=== PATIENT | male | born 1950 | race Caucasian/White ===

== ENCOUNTER → 2016-08-16 | Outpatient (CLI) | payer MEDICARE, OTHER ==
[~2016-08-16] MED LIST: CIPRO 500MG TA500 MG PO; PERCOCET 325 MG1 TA2 PO; PRINZIDE 25 MG-1 TAB PO; SENOKOT S 50 MG1 TAB PO; ZOCOR 40MG40 MG PO
== END ==
LOC: COL.RAD 08:10
DX: C61 Malignant neoplasm of prostate (principal)
CPT/HCPCS: A9503

== ENCOUNTER 2016-09-04 12:28 | Inpatient (IN) | payer MEDICARE, OTHER ==
[~2016-09-04] VITALS: Ht 188 cm; Wt 84.2 kg
[2016-10-01] VITALS (11 sets, daily range): BP systolic 125–156; BP diastolic 78–90; PULSE 64–91; TEMP 97.2–98.2
[2016-10-01] MEDS ORDERED: ZOCOR 40MG40 MG PO (07:24)
[2016-10-01] MEDS ORDERED: PRINZIDE 25 MG-1 TAB PO (07:24)
[2016-10-02 01:51] VITALS: BP 125/63; PULSE 65; TEMP 97.8
[2016-10-02 05:44] VITALS: BP 139/82; PULSE 74; TEMP 98.6
[2016-10-02 06:35] LABS: BASO % 0.1 % (0.0-2.0); EOS % 0.3 % (0-4.0); GRAN # 12.2 (1.4-6.5); GRAN % 79.4 % (42.2-75.2); HEMATOCRIT 40.6 % (42.0-52.0); HEMOGLOBIN 14.1 g/dl (13.5-18.0); LYMPH # 1.6 (1.2-3.4); LYMPH % 10.3 % (20.0-51.0); MEAN CELL VOLUME 93 fl (80.0-100.0); MEAN CORPUSCULAR HEMOGLOBIN 32 pg (27.0-31.0); MEAN CORPUSCULAR HGB CONC 35 g/dl (33.0-37.0); MEAN PLATELET VOLUME 10.5 fl (7.4-10.4); MONO # 1.4 (0.1-0.6); MONO % 9.4 % (1.7-9.3); PLATELET COUNT 208 K/mm3 (130-400); RED BLOOD COUNT 4.36 M/mm3 (4.20-5.60); REDCELL DISTRIBUTION WIDTH-CV 12.1 % (11.5-14.5); WHITE BLOOD COUNT 15.3 K/mm3 (4.8-10.8)
[2016-10-02 07:06] LABS: CALCIUM 8.7 mg/dL (8.4-10.2); CREATININE, serum 0.96 mg/dL (0.66-1.25); POTASSIUM 4.1 mmol/L (3.4-5.0)
[2016-10-02 10:05] VITALS: BP 132/77; PULSE 68; TEMP 98.2
[2016-10-02 14:19] VITALS: BP 156/86; PULSE 77; TEMP 98.7
[2016-10-02 18:04] VITALS: BP 138/81; PULSE 85; TEMP 99.4
[2016-10-02 21:51] VITALS: BP 146/89; PULSE 87; TEMP 98.8
[2016-10-03 01:53] VITALS: BP 146/99; PULSE 79; TEMP 98
[2016-10-03 05:48] VITALS: BP 101/74; PULSE 74; TEMP 98.2
[2016-10-03 10:05] VITALS: BP 143/95; PULSE 71; TEMP 98.2
[2016-10-03] MEDS ORDERED: PERCOCET 325 MG1 TA2 PO (13:30)
[2016-10-03] MEDS ORDERED: CIPRO 500MG TA500 MG PO (13:30)
[2016-10-03] MEDS ORDERED: SENOKOT S 50 MG1 TAB PO (13:31)
[2016-10-03 13:33] VITALS: BP 161/86; PULSE 94; TEMP 99
== END 2016-10-03 14:40 | disposition home or self-care (01) | DRG 708 ==
LOC: INPTSU 10-01 06:34 → SURG 10-01 08:30
PROVIDERS: Urology
PROC: 07BC4ZX Excision of Pelvis Lymphatic, Percutaneous Endoscopic Approach, Diagnostic (ICD-10-PCS; 2016-10-01)
PROC: 8E0W4CZ Robotic Assisted Procedure of Trunk Region, Percutaneous Endoscopic Approach (ICD-10-PCS; 2016-10-01)
PROC: 0VT04ZZ Resection of Prostate, Percutaneous Endoscopic Approach (ICD-10-PCS; principal; 2016-10-01 08:30)
DX: C61 Malignant neoplasm of prostate (principal); I10 Essential (primary) hypertension; F17.210 Nicotine dependence, cigarettes, uncomplicated
CPT/HCPCS: A9284; C1713; J0690; J1100; J1885; J2250; J2270; J2370; J2405; J2704; J2710; J3010; J7120

== ENCOUNTER 2020-04-03 16:38 | Emergency (ER) | payer MEDICARE, OTHER ==
[~2020-04-03] VITALS: Ht 188 cm; Wt 79.5 kg
[2020-04-03 17:20] LABS: BASO # 0.1 (0.0-0.2); BASO % 0.5 % (0.0-2.0); EOS # 0.1 (0.0-0.7); EOS % 0.6 % (0-4.0); GRAN # 7.5 (1.4-6.5); GRAN % 73.3 % (42.2-75.2); HEMATOCRIT 46.5 % (42.0-52.0); HEMOGLOBIN 16.6 g/dl (13.5-18.0); LYMPH # 1.9 (1.2-3.4); LYMPH % 18.5 % (20.0-51.0); MEAN CELL VOLUME 91 fl (80.0-100.0); MEAN CORPUSCULAR HEMOGLOBIN 33 pg (27.0-31.0); MEAN CORPUSCULAR HGB CONC 36 g/dl (33.0-37.0); MEAN PLATELET VOLUME 10.8 fl (7.4-10.4); MONO # 0.7 (0.1-0.6); MONO % 6.8 % (1.7-9.3); PLATELET COUNT 262 K/mm3 (130-400); REDCELL DISTRIBUTION WIDTH-CV 11.9 % (11.5-14.5)
[2020-04-03 17:26] LABS: PROTHROMBIN TIME 11.6 SECONDS (9.7-12.8)
[2020-04-03 17:35] LABS: ALANINE AMINOTRANSFERASE 25 U/L (4-49); ALBUMIN 4.7 gm/dL (3.5-5.0); ALKALINE PHOSPHATASE 63 U/L (50-136); ANION GAP 14 mmol/L (7-16); AST,SGOT 28 U/L (15-37); BILIRUBIN,TOTAL 0.7 mg/dL (0.0-1.0); BLOOD UREA NITROGEN 16 mg/dL (9-20); CALCIUM 9.8 mg/dL (8.4-10.2); CARBON DIOXIDE 20 mmol/L (22-30); CHLORIDE 103 mmol/L (98-107); CREATININE, serum 0.99 (0.66-1.25); GLUCOSE 138 mg/dL (74-106); POTASSIUM 3.4 mmol/L (3.4-5.0); SODIUM 136 mmol/L (137-145); TOTAL PROTEIN 7.5 gm/dL (6.4-8.2)
[2020-04-03 17:47] LABS: TROPONIN-I < 0.012 ng/mL (0.000-0.035)
[2020-04-03] MEDS ORDERED: NEXIUM 40MG40 MG PO (20:03)
[2020-04-03 21:46] VITALS: BP 136/74; PULSE 72; TEMP 98.2
== END 2020-04-03 20:45 | disposition home or self-care (01) ==
LOC: COL.ER 16:38
PROVIDERS: Physician Assistant
DX: R07.2 Precordial pain (principal); I10 Essential (primary) hypertension; E78.5 Hyperlipidemia, unspecified; F17.210 Nicotine dependence, cigarettes, uncomplicated; Z88.1 Allergy status to other antibiotic agents; Z88.8 Allergy status to other drugs, medicaments and biological substances

== ENCOUNTER 2020-04-05 08:40 | Emergency (ER) | payer MEDICARE, OTHER ==
[~2020-04-05] VITALS: Ht 188 cm; Wt 84.1 kg
[~2020-04-05 08:40] MED LIST changes: +NEXIUM 40MG40 MG PO
[2020-04-05 08:44] VITALS: TEMP 97.8
[2020-04-05 09:49] LABS: BASO % 0.3 % (0.0-2.0); EOS # 0.1 (0.0-0.7); EOS % 1.1 % (0-4.0); GRAN # 6.6 (1.4-6.5); GRAN % 71.4 % (42.2-75.2); HEMATOCRIT 47.7 % (42.0-52.0); HEMOGLOBIN 16.9 g/dl (13.5-18.0); LYMPH # 1.8 (1.2-3.4); LYMPH % 19.2 % (20.0-51.0); MEAN CELL VOLUME 94 fl (80.0-100.0); MEAN CORPUSCULAR HEMOGLOBIN 33 pg (27.0-31.0); MEAN CORPUSCULAR HGB CONC 35 g/dl (33.0-37.0); MEAN PLATELET VOLUME 10.6 fl (7.4-10.4); MONO # 0.7 (0.1-0.6); MONO % 7.5 % (1.7-9.3); PLATELET COUNT 215 K/mm3 (130-400); REDCELL DISTRIBUTION WIDTH-CV 12.1 % (11.5-14.5)
[2020-04-05 09:52] LABS: ALANINE AMINOTRANSFERASE 25 U/L (4-49); ALBUMIN 4.6 gm/dL (3.5-5.0); ALKALINE PHOSPHATASE 62 U/L (50-136); ANION GAP 12 mmol/L (7-16); AST,SGOT 28 U/L (15-37); BILIRUBIN,TOTAL 0.8 mg/dL (0.0-1.0); BLOOD UREA NITROGEN 14 mg/dL (9-20); CALCIUM 9.3 mg/dL (8.4-10.2); CARBON DIOXIDE 22 mmol/L (22-30); CHLORIDE 104 mmol/L (98-107); CREATINE KINASE 102 U/L (55-170); CREATININE, serum 0.98 (0.66-1.25); GLUCOSE 111 mg/dL (74-106); POTASSIUM 3.5 mmol/L (3.4-5.0); SODIUM 138 mmol/L (137-145); TOTAL PROTEIN 7.5 gm/dL (6.4-8.2)
[2020-04-05 10:04] LABS: TROPONIN-I < 0.012 ng/mL (0.000-0.035)
[2020-04-05] MEDS ORDERED: ANTIVERT 25MG25 MG PO (10:53)
[2020-04-05] MEDS ORDERED: ZOFRAN ODT4 MG PO (10:53)
[2020-04-05 15:44] VITALS: BP 127/82; PULSE 66
== END 2020-04-05 11:21 | disposition home or self-care (01) ==
LOC: COL.ER 08:40
PROVIDERS: Emergency Medicine
DX: R07.2 Precordial pain (principal); R42 Dizziness and giddiness; I10 Essential (primary) hypertension; E78.5 Hyperlipidemia, unspecified; F17.210 Nicotine dependence, cigarettes, uncomplicated; Z88.1 Allergy status to other antibiotic agents; Z88.8 Allergy status to other drugs, medicaments and biological substances
CPT/HCPCS: J2060; J7030

== ENCOUNTER 2023-04-04 13:11 | Emergency (ER) | payer MEDICARE, OTHER ==
[~2023-04-04] VITALS: Ht 188 cm; Wt 81.8 kg
[~2023-04-04 13:11] MED LIST changes: +ANTIVERT 25MG25 MG PO; +ZOFRAN ODT4 MG PO
[2023-04-04 13:30] VITALS: TEMP 97.9
[2023-04-04 14:28] LABS: COLLECTION METHOD CLEAN CATCH
[2023-04-04 14:32] LABS: BASO % 0.4 % (0.0-2.0); EOS # 0.1 K/mm3 (0.0-0.7); EOS % 1.2 % (0.0-4.0); GRAN # 7.3 K/mm3 (1.4-6.5); GRAN % 71.1 % (42.2-75.2); HEMATOCRIT 50.7 % (42.0-52.0); HEMOGLOBIN 17.4 g/dl (13.5-18.0); LYMPH # 1.8 K/mm3 (1.2-3.4); LYMPH % 17.3 % (20.0-51.0); MEAN CELL VOLUME 96 fl (80.0-100.0); MEAN CORPUSCULAR HEMOGLOBIN 33 pg (27-31); MEAN CORPUSCULAR HGB CONC 34 g/dl (33.0-37.0); MEAN PLATELET VOLUME 10.9 fl (7.4-10.4); MONO % 9.6 % (1.7-9.3); PLATELET COUNT 232 K/mm3 (130-400); RED BLOOD COUNT 5.27 M/mm3 (4.20-5.60); REDCELL DISTRIBUTION WIDTH-CV 12.1 % (11.5-14.5)
[2023-04-04 14:41] LABS: PH 5.5 (5.0-8.5); URINE APPEARANCE Clear (CLEAR/HAZY); URINE COLOR Amber (YELLOW)
[2023-04-04 14:42] LABS: URINE BLOOD Negative (NEGATIVE); URINE GLUCOSE Negative (NEGATIVE); URINE KETONE TRACE (NEGATIVE); URINE NITRATE Negative (NEGATIVE); URINE PROTEIN(semi-quant) TRACE (NEGATIVE)
[2023-04-04 14:43] LABS: MUCOUS Present (NOT PRESENT)
[2023-04-04 15:48] LABS: ALANINE AMINOTRANSFERASE 22 U/L (0-55); ALBUMIN 4.3 gm/dL (3.4-4.8); ALKALINE PHOSPHATASE 79 U/L (40-150); ANION GAP 12 mmol/L (7-16); AST,SGOT 15 U/L (5-34); BILIRUBIN,TOTAL 0.7 mg/dL (0.2-1.2); BLOOD UREA NITROGEN 15 mg/dL (8-26); CALCIUM 9.6 mg/dL (8.4-10.2); CARBON DIOXIDE 20 mmol/L (23-31); CHLORIDE 108 mmol/L (98-107); CREATININE, serum 1.02 mg/dL (0.72-1.25); GLUCOSE 120 mg/dL (70-99); POTASSIUM 3.8 mmol/L (3.5-4.5); SODIUM 140 mmol/L (136-145); TOTAL PROTEIN 7.4 gm/dL (6.2-8.1)
[2023-04-04 16:08] LABS: TSH w REFLEX 1.425 uIU/mL (0.350-4.940)
[2023-04-04 16:11] LABS: TROPONIN-I < 0.010 ng/mL (0.00-0.033)
[2023-04-04 16:24] VITALS: BP 134/94; PULSE 71
== END 2023-04-04 17:00 | disposition home or self-care (01) ==
LOC: COL.ER 13:11
PROVIDERS: Emergency Medicine
DX: R53.83 Other fatigue (principal); R06.02 Shortness of breath